=== PATIENT | female | born 1985 | race Caucasian/White ===

== ENCOUNTER 2017-10-20 08:26 | Outpatient (REF) | payer MEDICAID, SELFPAY ==
[2017-10-20 13:27] LABS: Cholesterol 233 mg/dL (50-200); HDL Cholesterol 41 mg/dL (40-60); LDL CHOLESTEROL 150 mg/dL (<100); TSH (W/Ref FT4) 4.34 uIU/mL (0.358-3.74); Triglyceride 295 mg/dL (30-150)
[2017-10-20 13:43] LABS: FREE T4 1.06 ng/dL (0.76-1.46)
== END 2017-10-20 08:46 ==
LOC: NCHCN 08:26
PROVIDERS: Visit Provider Family Medicine
DX: E78.5 Hyperlipidemia, unspecified (principal); E03.9 Hypothyroidism, unspecified
CPT/HCPCS: 80061; 83721; 84439; 84443

== ENCOUNTER 2017-12-23 16:13 | Outpatient (REF) | payer MEDICAID, SELFPAY | END 2017-12-23 16:33 | LOC: NCHCN 16:13 | PROVIDERS: PCP Family Medicine; Visit Provider Family Medicine | DX: E03.9 Hypothyroidism, unspecified (principal) | CPT/HCPCS: 84443 ==

== ENCOUNTER 2020-03-26 15:33 | Outpatient (REF) | payer OTHER, SELFPAY ==
[2020-03-26 22:04] LABS: HCT 41.6 % (36.0-46.0); HGB 13.3 g/dL (11.2-15.7); MCV 87.6 fL (80-95); Platelet Count 291 10^3/uL (130-400); RBC 4.75 10^6/uL (3.93-5.22); RDW 12.1 % (11.7-14.6); RDW-SD 39.1 fL; WBC 10.24 10^3/uL (4.4-10.8)
[2020-03-26 22:43] LABS: ALT 25 U/L (14-59); AST 14 U/L (15-37); Albumin 3.6 g/dL (3.4-5.0); Alkaline Phosphatase 72 U/L (46-116); Anion Gap 7.8 mmol/L (3-11); BUN 11 mg/dL (7-18); Bilirubin, Total 0.2 mg/dL (0.2-1.0); CO2 29.2 mmol/L (21.0-32.0); CREATININE 0.7 mg/dL (0.55-1.02); Calculated LDL 144 mg/dL (<100); Chloride 103 mmol/L (98-107); Cholesterol 251 mg/dL (<200); Glucose 92 mg/dL (74-106); HDL Cholesterol 43 mg/dL (40-60); Lipase 102 U/L (73-393); Potassium 4.2 mmol/L (3.5-5.1); Sodium 140 mmol/L (136-145); TSH (W/Ref FT4) 4.88 uIU/mL (0.36-3.74); Total Protein 7.3 g/dL (6.4-8.2); Triglyceride 321 mg/dL (<150)
[2020-03-26 23:03] LABS: FREE T4 0.92 ng/dL (0.76-1.46)
== END 2020-03-26 15:34 | disposition home or self-care (01) ==
LOC: NCHCN 15:33
PROVIDERS: PCP Family Medicine; Visit Provider Family Medicine
DX: R10.13 Epigastric pain (principal)
CPT/HCPCS: 80053; 80061; 83690; 85027; 84439; 84443

== ENCOUNTER 2020-09-21 11:02 | Outpatient (REF) | payer MEDICAID, SELFPAY ==
[2020-09-21 16:28] LABS: TSH (W/Ref FT4) 5.27 uIU/mL (0.36-3.74)
[2020-09-21 16:48] LABS: FREE T4 0.89 ng/dL (0.76-1.46)
== END 2020-09-21 11:03 | disposition home or self-care (01) ==
LOC: NCHCN 11:02
PROVIDERS: PCP Family Medicine; Visit Provider Family Medicine
DX: E03.9 Hypothyroidism, unspecified (principal)
CPT/HCPCS: 84439; 84443

== ENCOUNTER 2020-12-19 09:25 | Outpatient (REF) | payer MEDICAID, SELFPAY ==
[2020-12-19 13:23] LABS: TSH (W/Ref FT4) 4.44 uIU/mL (0.36-3.74)
[2020-12-19 13:46] LABS: FREE T4 1.01 ng/dL (0.76-1.46)
== END 2020-12-19 09:26 | disposition home or self-care (01) ==
LOC: NCHCN 09:25
PROVIDERS: PCP Family Medicine; Visit Provider Family Medicine
DX: E03.9 Hypothyroidism, unspecified (principal)
CPT/HCPCS: 84439; 84443

== ENCOUNTER 2021-02-06 09:43 | Outpatient (REF) | payer OTHER, SELFPAY ==
[2021-02-06 15:36] LABS: FREE T4 0.97 ng/dL (0.76-1.46); TSH 3.05 uIU/mL (0.36-3.74)
== END 2021-02-06 09:44 | disposition home or self-care (01) ==
LOC: NCHCN 09:43
PROVIDERS: PCP Family Medicine; Visit Provider Family Medicine
DX: E03.9 Hypothyroidism, unspecified (principal)
CPT/HCPCS: 84439; 84443

== ENCOUNTER 2022-04-07 02:53 | Outpatient (CLI) | payer MEDICAID, SELFPAY ==
[2022-04-07 12:29] LABS: HCT 42.4 % (36.0-46.0); HGB 13.1 g/dL (11.2-15.7); MCH 27.2 pg (27.0-33.0); MCHC 30.9 % (32.0-36.0); MCV 88 fL (80-95); MPV 11.1 fL (8.0-11.0); Platelet Count 251 10^3/uL (130-400); RBC 4.82 10^6/uL (3.93-5.22); RDW 13.2 % (11.7-14.6); RDW-SD 42.3 fL; WBC 9.47 10^3/uL (4.4-10.8)
[2022-04-07 13:07] LABS: ALT 43 U/L (14-59); AST 27 U/L (15-37); Albumin 3.5 g/dL (3.4-5.0); Alkaline Phosphatase 72 U/L (46-116); Anion Gap 8.3 mmol/L (3-11); BUN 7 mg/dL (7-18); Bilirubin, Total 0.4 mg/dL (0.2-1.0); CO2 29.7 mmol/L (21.0-32.0); CREATININE 0.7 mg/dL (0.55-1.02); Calculated LDL 153 mg/dL (<100); Chloride 103 mmol/L (98-107); Cholesterol 261 mg/dL (<200); Estimated GFR 113.46 (mL/min/1.73m2); Glucose 93 mg/dL (74-106); HDL Cholesterol 56 mg/dL (40-60); Potassium 4.1 mmol/L (3.5-5.1); Sodium 141 mmol/L (136-145); Total Protein 7.5 g/dL (6.4-8.2); Triglyceride 260 mg/dL (<150); Vitamin B12 360 pg/mL (193-986)
[2022-04-09 14:58] LABS: TSH (W/Ref FT4) 6.11 uIU/mL (0.36-3.74)
[2022-04-09 15:22] LABS: FREE T4 0.97 ng/dL (0.76-1.46)
== END 2022-04-07 02:54 | disposition home or self-care (01) ==
PROVIDERS: PCP Family Medicine; Visit Provider Family Medicine
DX: E03.9 Hypothyroidism, unspecified (principal); E78.5 Hyperlipidemia, unspecified; E66.8 Other obesity; R68.89 Other general symptoms and signs
CPT/HCPCS: 36415; 80053; 80061; 85027; 82607; 84439; 84443

== ENCOUNTER 2022-06-30 20:55 | Outpatient (REF) | payer OTHER, MEDICAID, SELFPAY ==
[2022-06-30 21:22] LABS: TSH (W/Ref FT4) 2.98 uIU/mL (0.36-3.74)
== END 2022-06-30 20:56 | disposition home or self-care (01) ==
LOC: NCHCN 20:55
PROVIDERS: PCP Family Medicine; Visit Provider Family Medicine
DX: Z00.00 Encounter for general adult medical examination without abnormal findings (principal); E03.9 Hypothyroidism, unspecified
CPT/HCPCS: 84443

== ENCOUNTER 2023-04-10 21:48 | Outpatient (REF) | payer BC, SELFPAY ==
[2023-04-10 16:04] LABS: Calculated LDL 160 mg/dL (<100); Cholesterol 254 mg/dL (<200); HDL Cholesterol 53 mg/dL (40-60); TSH 3.06 uIU/mL (0.36-3.74); Triglyceride 209 mg/dL (<150)
[2023-04-10 16:42] LABS: FREE T4 1.17 ng/dL (0.76-1.46)
[2023-04-10 17:30] LABS: Vitamin D 25 Total 14.2 ng/mL (30-100)
== END 2023-04-10 21:49 | disposition home or self-care (01) ==
LOC: NCHCN 21:48
PROVIDERS: PCP Family Medicine; Visit Provider Family Medicine
DX: Z00.00 Encounter for general adult medical examination without abnormal findings (principal)
CPT/HCPCS: 80061; 82306; 84439; 84443

== ENCOUNTER 2024-05-02 21:21 | Outpatient (REF) | payer MEDICAID, SELFPAY ==
[2024-05-02 21:27] LABS: Abs Immature Grans 0.04 10^3/uL (0.0-0.06); Absolute Basophil Count 0.03 10^3/uL (0.0-0.2); Absolute Eosinophil Count 0.16 10^3/uL (0.0-0.7); Absolute Monocyte Count 0.49 10^3/uL (0.1-0.8); Absolute Neutrophil Count 7.51 10^3/uL (1.2-6.7); Basophils % 0.3 %; Eosinophils % 1.5 %; HCT 42.3 % (36.0-46.0); HGB 13.2 g/dL (11.2-15.7); Immature Grans % 0.4 %; Lymphocytes % 20.3 %; MCH 26.4 pg (27.0-33.0); MCHC 31.2 % (32.0-36.0); MCV 85 fL (80-95); MPV 11.2 fL (8.0-11.0); Monocytes % 4.7 %; Neutrophils % 72.8 %; Platelet Count 307 10^3/uL (130-400); RDW 13.2 % (11.7-14.6); RDW-SD 40.8 fL; WBC 10.33 10^3/uL (4.4-10.8)
[2024-05-02 21:52] LABS: ALT 32 U/L (14-59); AST 23 U/L (15-37); Albumin 3.8 g/dL (3.4-5.0); Alkaline Phosphatase 93 U/L (46-116); Anion Gap 5.6 mmol/L (3-11); BUN 14 mg/dL (7-18); Bilirubin, Total 0.4 mg/dL (0.2-1.0); CO2 31.4 mmol/L (21.0-32.0); CREATININE 0.8 mg/dL (0.55-1.02); Calcium 9.2 mg/dL (8.5-10.1); Calculated LDL 90 mg/dL (<100); Chloride 104 mmol/L (98-107); Cholesterol 205 mg/dL (<200); Estimated GFR 95.46 (mL/min/1.73m2); Glucose 82 mg/dL (74-106); HDL Cholesterol 50 mg/dL (>or=50); Potassium 4.2 mmol/L (3.5-5.1); Sodium 141 mmol/L (136-145); TSH (W/Ref FT4) 3.63 uIU/mL (0.36-3.74); Total Protein 7.3 g/dL (6.4-8.2); Triglyceride 329 mg/dL (<150)
== END 2024-05-02 21:22 | disposition home or self-care (01) ==
LOC: NCHCN 21:21
PROVIDERS: PCP Family Medicine; Visit Provider Family Medicine
DX: K21.9 Gastro-esophageal reflux disease without esophagitis (principal); E03.9 Hypothyroidism, unspecified; E66.9 Obesity, unspecified
CPT/HCPCS: 80053; 80061; 84443; 85025

== ENCOUNTER 2024-05-24 00:54 | Outpatient (CLI) | payer MEDICAID, SELFPAY ==
--- NOTE | 2024-05-24 12:38 | DI.MAMMO_ITS ---
Exam(s) MAMMO SCREENING EXAM: MAMMO SCREENING CLINICAL HISTORY: ADULT HEALTH EXAMINATION, Z00.00 SCREENING MAMMO TECHNIQUE: Mammograms were interpreted according to the usual protocol including computer analysis w [employer] CAD system, tomosynthesis and C-view imaging. COMPARISON: None. Baseline examination. FINDINGS: The breasts are composed of mainly fatty density , Breast Density category A. No suspicious masses or suspicious microcalcifications are seen. No skin thickening or abnormal axillary lymph nodes are seen. IMPRESSION: BI-RADS Category 1, Negative mammogram Yearly screening mammography is recommended. Breast Density - Category A, fatty density. A negative radiographic report should not delay biopsy if a dominant or clinically suspicious mass is present. Up to ten percent of cancers are not identified on mammography. A negative report may reinforce clinical impression. Adenosis and dense breasts may obscure an underlying neoplasm. False positive reports average 6 to 10%. Patient will receive a letter notifying them of these results.
== END 2024-05-24 01:14 ==
LOC: DI 00:54
PROVIDERS: PCP Family Medicine; Visit Provider Family Medicine
DX: Z12.31 Encounter for screening mammogram for malignant neoplasm of breast (principal); R92.313 Mammographic fatty tissue density, bilateral breasts
CPT/HCPCS: 77063; 77067

== ENCOUNTER 2024-11-23 16:01 | Outpatient (REF) | payer MEDICAID, SELFPAY ==
[2024-11-23 20:52] LABS: Calculated LDL 88 mg/dL (<100); Cholesterol 196 mg/dL (<200); HDL Cholesterol 44 mg/dL (>or=50); Triglyceride 321 mg/dL (<150)
== END 2024-11-23 16:02 | disposition home or self-care (01) ==
LOC: NCHCN 16:01
PROVIDERS: PCP Family Medicine; Visit Provider Family Medicine
DX: E78.2 Mixed hyperlipidemia (principal)
CPT/HCPCS: 80061